=== PATIENT | male | born 1980 | race Caucasian/White ===

== ENCOUNTER 2016-12-06 18:27 | Emergency (ER) | payer OTHER ==
[~2016-12-06] VITALS: Ht 177.8 cm; Wt 70.3 kg
[~2016-12-06 18:27] MED LIST: ALPRAZOLAM2 MG PO; ENDOCET1 TAB PO; LEVOFLOXACIN500 MG PO; SUBOXONE 8 MG-21 TAB SL
[2016-12-06 18:32] VITALS: BP 129/78
== END 2016-12-06 20:09 | disposition admitted as inpatient to this hospital (09) ==
LOC: ERH 18:27
DX: R42 Dizziness and giddiness (principal); F41.9 Anxiety disorder, unspecified